=== PATIENT | female | born 1990 | race Caucasian/White ===

== ENCOUNTER 2018-06-01 09:52 | Emergency (ER) | payer OTHER, SELFPAY ==
[2018-06-01 10:08] VITALS: BP 127/68; PULSE 78; RESP 16; TEMP 37; O2SAT 98
--- NOTE | 2018-06-01 10:25 | ED.GENADUL_ITS ---
Discharge Plan Disposition Patient Disposition: HOME Discharge Details Chief Complaint: RespSymp Clinical Impression: Sinusitis, acute Primary Care Provider: None,None ED Provider: Grey Martin Home Meds and New Rx's Prescriptions: New doxycycline hyclate 100 mg tablet 100 mg PO BID Qty: 19 RF: 0 Continued fluvoxamine 150 mg Capsule,Extended Release 24hr 150 mg PO DAILY RF: 0 Discharge Instructions Instructions: Sinusitis (ED) Additional Instructions: Please drink plenty of fluid and allow for plenty of rest. Please take ibuprofen over the counter - dose according to label. Please contact your primary care physician to arrange follow-up. Return to the ER for any worsening or new concerning symptoms. HPI General Mode of arrival: ambulatory . Date/Time Provider Initiated Documentation: 06/01/18 10:14 . Limitations to Documentation: no limitations . Information obtained by: patient . HPI Narrative: 28-year-old female here with chief complaint of left sinus pain. Feels congested. Patient notes that she has a history of prior intermittent sinusitis and has had surgery on her sinuses and deviated septum 10 years ago. Current episode started 4 days ago and has persisted. Pain is moderate to severe. Pain localized to left face and upper teeth. She has no associated headache. No associated fever. No visual changes. Related Data Home Medications Medication Instructions Recorded Confirmed doxycycline hyclate 100 mg PO BID #19 tab 06/01/18 fluvoxamine 150 mg PO DAILY 06/01/18 06/01/18 Previous Rx's Medication Instructions Recorded doxycycline hyclate 100 mg PO BID #19 tab 06/01/18 Allergies Allergy/AdvReac Type Severity Reaction Status Date / Time No Known Allergies Allergy Unverified 06/01/18 10:12 General Stated Complaint: RespSymp KLEBER: 4 Review of Systems Constitutional Reports as per HPI ENT Reports as per HPI Respiratory Denies cough PFSH Social History Smoking/Tobacco Use Status: Never Exam Const General: cooperative and no acute distress HENMT Head: normocephalic and atraumatic Face and sinus: sinus tenderness maxillary (left) Mouth: oral mucosae normal, oropharynx normal and moist mucous membranes Teeth and gingiva: dentition normal Throat: posterior oropharynx normal Eyes Conjunctivae: normal conjunctivae Sclera: normal sclerae EOM: EOM intact bilaterally Neck Neck: trachea midline and supple Resp Auscultation: clear to auscultation bilaterally, no rales, no rhonchi and no wheezes Cardio Jugular venous pressure: no JVD Rate: regular rate and not tachycardic Rhythm: regular rhythm Skin General skin exam: no rashes or lesions noted Neuro General: alert, awake, oriented x3 and tone normal Course Vital Signs Temperature 37 C 06/01/18 10:08 Pulse 78 06/01/18 10:08 Respiratory Rate 16 06/01/18 10:08 Blood Pressure 127/68 06/01/18 10:08 Pulse Oximetry 98 06/01/18 10:08 Temperature 37 C 06/01/18 10:08 Temperature Source Skin 06/01/18 10:08 Pulse 78 06/01/18 10:08 Respiratory Rate 16 06/01/18 10:08 Respiratory Effort Non-Labored 06/01/18 10:08 Blood Pressure 127/68 06/01/18 10:08 Blood Pressure Position Sitting 06/01/18 10:08 Pulse Oximetry 98 06/01/18 10:08 Oxygen Delivery Method Room Air 06/01/18 10:08 Oxygen Flow Rate 0 06/01/18 10:08 Pain Level 8 06/01/18 10:08
[2018-06-01] MEDS: Acetaminophen 325 MG TAB 650 MG PO (10:55)
[2018-06-01] MEDS: Doxycycline Hyclate 100 MG CAP PO (10:55)
== END 2018-06-01 10:39 | disposition home or self-care (01) ==
LOC: ER 10:48
PROVIDERS: Emergency Provider Student in an Organized Health Care Education/Training Program
DX: J01.90 Acute sinusitis, unspecified (principal)
CPT/HCPCS: 99283